=== PATIENT | female | born 1950 | race Caucasian/White ===

== ENCOUNTER 2017-01-01 14:36 | Outpatient (CLI) | payer MEDICARE ==
--- NOTE | 2017-01-09 17:26 | MMO ---
BILATERAL MAMMOGRAMS: DATE: 01/01/17 HISTORY: Screening mammography. COMPARISON: 11/01/12 and 02/02/14. FINDINGS: Scattered fibroglandular densities and benign-appearing calcifications are again demonstrated. Paren chymal scarring in the right breast is stable. There is no new dominant mass or suspicious calcifica tions. The study was evaluated with the assistance of computer-aided detection. IMPRESSION: BIRADS 2: Benign Finding(s) Suggest routine follow-up. POS: [facility]
== END 2017-01-01 14:37 | disposition home or self-care (01) ==
LOC: MAMMO 14:36
PROVIDERS: ATTEND Family Medicine
DX: Z12.31 Encounter for screening mammogram for malignant neoplasm of breast (principal)
CPT/HCPCS: 77067; G0202

== ENCOUNTER 2017-04-06 08:57 | Observation (INO) | payer MEDICARE ==
[2017-04-06 09:34] LABS: #Basophils 0.1 thou/uL (0.0-0.2); #Eosinphils 0.3 thou/uL (0.0-0.7); #Lymphocytes 2.3 thou/uL (1.20-3.40); #Monocytes 0.6 thou/uL (0.11-0.59); #Neutrophils 3.8 thou/uL (1.40-6.50); %Basophils 1.1 % (0.0-1.0); %Eosinophils 3.7 % (0.0-10.0); %Lymphocytes 32.4 % (21.0-51.0); %Monocytes 8.8 % (0.0-10.0); Hematocrit 44.5 % (36.0-47.0); Mean Platelet Volume 6.9 fL (7.4-10.4); Red Blood Cell (RBC) Count 4.93 mill/uL (4.20-5.40)
[2017-04-06] MEDS ORDERED: Nitroglycerin 2% Ointment 1 INCH/1 GM Packet ONE (09:44)
[2017-04-06 09:48] LABS: ALT (SGPT) 26 U/L (8-55); AST (SGOT) 22 U/L (5-34); Alkaline Phosphatase 99 U/L (40-150); Anion Gap 12 mmol/L (10-20); BUN (Urea Nitrogen) 22 mg/dL (9.8-20.1); Bilirubin, Total 0.8 mg/dL (0.2-1.2); CK (CPK) 102 U/L (29-168); Calc. Creatinine Clearance 0 mL/min (70-130); Calcium 9.9 mg/dL (7.8-10.44); Carbon Dioxide 26 mmol/L (23-31); Chloride 103 mmol/L (98-107); Estimated GFR-MDRD 74; Globulin 3.1 g/dL (2.4-3.5); Lipase 20 U/L (8-78); Protein, Total 7.4 g/dL (6.0-8.3)
[2017-04-06 09:51] LABS: Troponin I Less than 0.010 ng/mL (< 0.028)
--- NOTE | 2017-04-06 10:16 | RAD ---
PORTABLE CHEST: Date: 04/06/17 PROVIDED CLINICAL HISTORY: Chest pain. FINDINGS: Cardiac and mediastinal silhouette is within normal limits. Lungs appear clear. There is no pleural f luid or pneumothorax apparent. Degenerative changes and scoliosis are seen involving the spine. IMPRESSION: No evidence for an acute cardiopulmonary process. POS: [facility]
[2017-04-06] MEDS ORDERED: Nitroglycerin 0.4 MG TAB (25 Tab Bottle) PO PRN (12:52)
[2017-04-06] MEDS ORDERED: Acetaminophen 325 MG TAB PO PRN (12:52)
[2017-04-06 12:57] VITALS: TEMP 98.3; BMI 28.5
[2017-04-06 12:58] LABS: Troponin I Less than 0.010 ng/mL (< 0.028)
[2017-04-06] MEDS ORDERED: FLU VACC TS2017-18 (>65YR) 0.5 ML SYRINGE IM ONE (14:00)
--- NOTE | 2017-04-06 14:05 | SS ---
REASON FOR ADMISSION: Chest pain. HISTORY OF PRESENTING ILLNESS: The patient gives history of developing chest pain early this morning . This pain was coming and going. The pain was like a twinge and would not last for more than 20-30 seconds. She also had radiation of this pain to the left arm. All of this concern, hence the patie nt came to emergency room. No complaints of cough or expectoration. No complaints of palpitation. Patient states she is active in life. PAST MEDICAL AND SURGICAL HISTORY: History of prediabetes, dyslipidemia, partial right mastectomy wi th histopathology showing microcalcification. ALLERGIES: No known drug allergies. PERSONAL HISTORY: Does not abuse alcohol or drugs. No history of smoking. FAMILY HISTORY: Mother of [place] at the age of 51 years. Father was alcoholic and of complica tions from [place] at the age of 67 years/ CURRENT MEDICATIONS: None. She has tried taking cholesterol medication, but this was causing her gl ucose levels to go up and stopped it. No known drug allergies. The patient is a retired office cinthia roverto. CODE STATUS: FULL. REVIEW OF SYSTEMS: The following complete review of systems was negative, unless otherwise mentioned in the HPI or below: Constitutional: Weight loss or gain, ability to conduct usual activities. Skin: Rash, itching. Eyes: Double vision, pain. ENT/Mouth: Nose bleeding, neck stiffness, pain, tenderness. Cardiovascular: Palpitations, dyspnea on exertion, orthopnea. Respiratory: Shortness of breath, wheezing, cough, hemoptysis, fever or night sweats. Gastrointestinal: Poor appetite, abdominal pain, heartburn, nausea, vomiting, constipation, or diarr hea. Genitourinary: Urgency, frequency, dysuria, nocturia. Musculoskeletal: Pain, swelling. Neurologic/Psychiatric: Anxiety, depression. Allergy/Immunologic: Skin rash, bleeding tendency. PHYSICAL EXAMINATION: GENERAL: The patient is a 66-year-old female who is currently not in any acute distress. VITAL SIGNS: Blood pressure 150/100, pulse 90 per minute, respiratory rate 16 per minute, temperatur e 98 degrees Fahrenheit, saturating 96% on room air. NECK: Supple, no elevated JVD. HEENT: Extraocular muscles intact. Pupils reacting to light. Oral cavity mucous membranes are mois t. No exudates or congestion. CARDIOVASCULAR SYSTEM: S1, S2 heard. Regular rhythm. RESPIRATORY SYSTEM: Air entry 2+ bilateral. No rales or rhonchi. ABDOMEN: Soft, bowel sounds heard. No tenderness, rigidity or guarding. EXTREMITIES: No peripheral edema or calf tenderness. VASCULAR SYSTEM: Peripheral pulses 2+ bilateral, no ischemic ulcerations or gangrene. CENTRAL NERVOUS SYSTEM: No gross focal deficits seen. Patient is alert, awake, oriented x3. PSYCHIATRIC SYSTEMS: The patient's mood is euthymic. No hallucinations or delusions. LABORATORY DATA AND X-RAY FINDINGS: White count 7, H&H 14 and 44, and platelet count 257 with 53% ne utrophils. Electrolytes are stable. Troponin x2 is negative. BUN 22, creatinine 0.7, glucose 102. Chest x-ray done shows no acute cardiopulmonary abnormalities. EKG done shows normal sinus rhythm a t 88 beats per minute, no gross ST-T wave changes. CLINICAL IMPRESSION AND PLAN: The patient will be under observation on telemetry for chest pain, rul e out acute coronary syndrome. She has had 2 sets of troponin being negative and will be shortly bishop eduled for a stress test. If the stress test is normal, she will be safely discharged home. She nee ds follow up with her primary care physician, Dr. Jorge Willis in a week or so. She is otherwise hemo dynamically stable at present.
[2017-04-06 16:58] VITALS: BP 144/73
--- NOTE | 2017-04-06 17:32 | NM ---
CARDIAC SPECT WITH EF AND WALL MOTION: 04/06/17 HISTORY: 66-year-old female with chest pain, dyslipidemia, family history of coronary artery disease. Sestamibi study was performed using Carlos protocol. Patient was injected with 28.3 millicuries of technetium 99m Sestamibi intravenously for stress image s and 11.0 millicuries technetium 99m Sestamibi intravenously for rest images. Multiple SPECT images in the short axis, vertical long axis, and horizontal long axis demonstrates no scan evidence for infarct or ischemia. TID - 0.84. LHR - 0.30. EDV - 38 mL. EF - 85%. MYOCARDIAL PERFUSION WALL MOTION: Wall motion is normal. IMPRESSION: Normal cardiac SPECT with EF and wall motion. POS: [facility]
[2017-04-06 18:13] LABS: Troponin I 0.011 ng/mL (< 0.028)
[2017-04-06] MEDS ORDERED: Famotidine 20 MG TAB PO SCH (21:00)
[2017-04-07] MEDS ORDERED: Enoxaparin Sodium 40 MG/0.4 ML SYRINGE SC SCH (09:00)
[2017-04-07] MEDS ORDERED: Aspirin 325 MG TAB PO SCH (09:00)
== END 2017-04-06 17:39 | disposition home or self-care (01) ==
LOC: ERS 08:57 → 2SW 10:00
PROVIDERS: ADMIT Internal Medicine; ATTEND Internal Medicine
DX: R07.89 Other chest pain (principal); E78.5 Hyperlipidemia, unspecified; R73.03 Prediabetes; Z90.11 Acquired absence of right breast and nipple; Z82.49 Family history of ischemic heart disease and other diseases of the circulatory system
CPT/HCPCS: 71010; 78452; 80053; 82550; 82553; 83690; 83880; 84484 ×2; 85025; 93005; 93017; 99285; A9500; G0378; 36415

== ENCOUNTER 2019-06-23 13:35 | Outpatient (CLI) | payer MEDICARE ==
--- NOTE | 2019-06-23 14:10 | MMO ---
Bilateral MAMMO Bilat Screen [facility]. CLINICAL HISTORY: Patient is 68 years old and is seen for screening. VIEWS: The views performed were: . FILMS COMPARED: The present examination has been compared to prior imaging studies performed at [facility] on 01/01/2017, and at [facility] on 11/01/2011, 11/01/2012 and 02/02/2014. This study has been interpreted with the assistance of computer-aided detection. MAMMOGRAM FINDINGS: There are scattered fibroglandular densities. Finding 1: There are stable benign appearing calcifications seen in both breasts. Finding 2: There are stable benign appearing densities seen in both breasts. There are no suspicious masses, suspicious calcifications, or new areas of architectural distortion. IMPRESSION: THERE IS NO MAMMOGRAPHIC EVIDENCE OF MALIGNANCY. A ROUTINE FOLLOW-UP MAMMOGRAM IN 1 YEAR IS RECOMMENDED. THE RESULTS OF THIS EXAM WERE SENT TO THE PATIENT. ACR BI-RADS Category 2 - Benign finding MAMMOGRAPHY NOTE: 1. A negative mammogram report should not delay a biopsy if a dominant of clinically suspicious mass is present. 2. Approximately 10% to 15% of breast cancers are not detected by mammography. 3. Adenosis and dense breasts may obscure an underlying neoplasm. Reported by: JAYDEN HARO MD Electonically Signed: [id number]
--- NOTE | 2019-06-23 14:16 | BD ---
EXAM: DEXA bone density examination HISTORY: Asymptomatic menopausal state; osteoporosis screening COMPARISON: None FINDINGS: L1--bone mineral density 0.796 g/sq cm; T score -1.8. Z score 0.1 L2--bone mineral density 0.750 g/sq cm; T score -2.5; Z score -0.5 L3--bone mineral density 1.012 g/sq cm; T score -0.7; Z score 1.5 L4--bone mineral density 1.307 g/sq cm; T score 2.2, Z score 4.5 Total L1-L4--bone mineral density 0.961 g/sq cm; T score -0.8, Z score 1.3 Left femoral neck--bone mineral density0.608; T score -2.2, Z score -0.4 Total proximal left femur--bone mineral density 0.697; T score -2.0, Z score -0.5 This patient has a 10 year WHO fracture risk of a major osteoporotic fracture of 12% and of a hip fra cture of 2.5%. IMPRESSION: Based on the WHO criteria, the patient's bone mineral density is consideredOsteopenic. T he patient is at moderate risk for fracture. scan
== END 2019-06-23 13:36 | disposition home or self-care (01) ==
LOC: BICMAMMO 13:35
PROVIDERS: ATTEND Family Medicine
DX: Z12.31 Encounter for screening mammogram for malignant neoplasm of breast (principal); Z13.820 Encounter for screening for osteoporosis; Z78.0 Asymptomatic menopausal state; M85.80 Other specified disorders of bone density and structure, unspecified site
CPT/HCPCS: 77063; 77067; 77080

== ENCOUNTER 2020-09-10 09:43 | Outpatient (CLI) | payer MEDICARE | END 2020-09-10 09:44 | disposition home or self-care (01) | LOC: SCSRAD 09:43 | PROVIDERS: ATTEND Family Medicine | DX: M54.2 Cervicalgia (principal); M25.552 Pain in left hip; M25.551 Pain in right hip; M53.3 Sacrococcygeal disorders, not elsewhere classified; M41.9 Scoliosis, unspecified; M47.816 Spondylosis without myelopathy or radiculopathy, lumbar region; M47.814 Spondylosis without myelopathy or radiculopathy, thoracic region; M47.812 Spondylosis without myelopathy or radiculopathy, cervical region; M16.0 Bilateral primary osteoarthritis of hip | CPT/HCPCS: 72040; 72072; 72100; 72202 ==

== ENCOUNTER 2021-12-30 09:52 | Outpatient (CLI) | payer OTHER | END 2021-12-30 09:53 | disposition home or self-care (01) | LOC: BICMAMMO 09:52 | PROVIDERS: ATTEND Family Medicine | DX: Z12.31 Encounter for screening mammogram for malignant neoplasm of breast (principal); Z13.820 Encounter for screening for osteoporosis; N95.9 Unspecified menopausal and perimenopausal disorder; M85.89 Other specified disorders of bone density and structure, multiple sites; Z91.89 Other specified personal risk factors, not elsewhere classified | CPT/HCPCS: 77063; 77067; 77080 ==

== ENCOUNTER 2023-03-16 09:40 | Outpatient (CLI) | payer OTHER | END 2023-03-16 09:41 | disposition home or self-care (01) | LOC: BICMAMMO 09:40 | PROVIDERS: ATTEND Family Medicine | DX: Z12.31 Encounter for screening mammogram for malignant neoplasm of breast (principal); Z91.89 Other specified personal risk factors, not elsewhere classified | CPT/HCPCS: 77063; 77067 ==

== ENCOUNTER 2024-05-15 13:41 | Outpatient (CLI) | payer OTHER | END 2024-05-15 13:42 | disposition home or self-care (01) | LOC: BICMAMMO 13:41 | PROVIDERS: ATTEND Family Medicine | DX: M85.89 Other specified disorders of bone density and structure, multiple sites (principal) | CPT/HCPCS: 77080 ==